=== PATIENT | female | born 1945 | race Caucasian/White ===

== ENCOUNTER 2018-01-09 18:52 | Emergency (ER) | payer OTHER ==
[~2018-01-09] VITALS: Ht 172.7 cm; Wt 79.4 kg
[2018-01-09] MEDS ORDERED: PHENERGAN25 MG PO (19:02)
[2018-01-09] MEDS ORDERED: ALL DAY ALLERGY10 M3 PO (19:02)
[2018-01-09] MEDS ORDERED: POTASSIUM CHLOR8 ME1 PO (19:03)
[2018-01-09] MEDS ORDERED: METHOCARBAMOL500 MG PO (19:03)
[2018-01-09] MEDS ORDERED: EMBEDA ER 60-21 EACH PO (19:04)
[2018-01-09] MEDS ORDERED: CITALOPRAM HBR20 MG PO (19:04)
[2018-01-09] MEDS ORDERED: CLOPIDOGREL BIS75 MG PO (19:04)
[2018-01-09] MEDS ORDERED: TOPROL XL25 M1 PO (19:05)
[2018-01-09] MEDS ORDERED: PROTONIX40 M1 PO (19:05)
[2018-01-09] MEDS ORDERED: ATORVASTATIN CA20 MG PO (19:05)
[2018-01-09] MEDS ORDERED: PRAMIPEXOLE D0.25 MG PO (19:06)
[2018-01-09] MEDS ORDERED: PHILLIPS500 MG PO (19:07)
[2018-01-09] MEDS ORDERED: FUROSEMIDE20 MG PO (19:08)
[2018-01-09] MEDS ORDERED: ALDACTONE50 MG PO (19:08)
[2018-01-09] MEDS ORDERED: COLACE100 MG PO (19:09)
[2018-01-09] MEDS ORDERED: BENAZEPRIL HCL40 MG PO (19:09)
[2018-01-09] MEDS ORDERED: MECLIZINE HCL25 MG PO (19:09)
[2018-01-09] MEDS ORDERED: HYDROCODON-ACE1 EAC6 PO (19:10)
== END 2018-01-09 23:59 | disposition home or self-care (01) ==
LOC: ER 18:52
DX: K29.50 Unspecified chronic gastritis without bleeding (principal); K21.9 Gastro-esophageal reflux disease without esophagitis